=== PATIENT | female | born 1935 | race Two or more races ===

== ENCOUNTER 2016-08-26 14:31 | Emergency (ER) | payer OTHER ==
[2016-08-26 15:09] VITALS: TEMP 97.7; O2SAT 96
[2016-08-26 16:36] LABS: % IMMATURE GRANULYOCYTES 0.2 % (0.0-1.1); ABSOLUTE IMMATURE GRANULOCYTES 0.01 10^3/uL (0.00-0.10); ADD DIFF? NO; ADD MORPH? NO; ADD SCAN? NO; ATYPICAL LYMPHOCYTE FLAG 0 (0-99); FRAGMENT RBC FLAG 0 (0-99); HEMATOCRIT 46.4 % (38.0-47.0); HEMOGLOBIN 15.4 g/dL (12.6-16.3); LEFT SHIFT FLG 0 (0-99); LIPEMIA HEMOLYSIS FLAG 80 (0-99); MEAN CELL HEMOGLOBIN 30.7 pg (27.9-34.1); MEAN CELL HEMOGLOBIN CONCENTR. 33.2 g/dL (32.4-36.7); MEAN CELL VOLUME 92.4 fL (81.5-99.8); MEAN PLATELET VOLUME 10.7 fL (8.7-11.7); PLATELET CLUMPS FLAG 10 (0-99); PLATELET COUNT 219 10^3/uL (150-400); RED BLOOD CELL COUNT 5.02 10^6/uL (4.18-5.33); RED CELL DISTRIBUTION WIDTH 13.5 % (11.5-15.2)
[2016-08-26 16:49] LABS: ALANINE AMINOTRANSFERASE 23 IU/L (9-52); ALBUMIN 3.9 g/dL (3.5-5.0); ALKALINE PHOSPHATASE 58 IU/L (38-126); ANION GAP 10 mEq/L (8-16); ASPARTATE AMINOTRANSFERASE 33 IU/L (14-46); BILIRUBIN,TOTAL 0.7 mg/dL (0.1-1.4); CALCIUM 9.8 mg/dL (8.5-10.4); CARBON DIOXIDE 28 mEq/l (22-31); CHLORIDE 104 mEq/L (97-110); CREATININE 0.9 mg/dL (0.6-1.0); GLOMERULAR FILTRATION RATE > 60; GLUCOSE 92 mg/dL (70-100); MAGNESIUM 1.9 mg/dL (1.6-2.3); POTASSIUM 4.4 mEq/L (3.5-5.2); SODIUM 142 mEq/L (134-144); TOTAL PROTEIN 6.9 g/dL (6.3-8.2)
[2016-08-26 17:04] LABS: TROPONIN I < 0.012 ng/mL (0-0.034)
[2016-08-26] MEDS ORDERED: ONDANSETRON 4 MG/2 ML VIAL IVP ONE (17:08)
[2016-08-26] MEDS ORDERED: NS 1,000 ML IV ONE (17:08)
--- NOTE | 2016-08-26 17:18 | CT ---
CT Head (Without Contrast) 4:29 p.m. Indication: Hit head 5 days ago. Continued headache and fatigue.. Comparison: None Technique: Standard noncontrast head CT protocol utilizing 5-mm thick collimated slices and field of view of 23 cm. Dose reduction techniques were utilized. Findings: No subdural hematoma. No intracranial hemorrhage, mass lesion, swelling, or extraaxial flui d collection. The ventricles are normal caliber and midline. Minimal cerebral atrophy and minimal low -attenuation periventricular white matter disease in the frontal lobes. The mandujano and white matter has normal attenuation. No evidence of ischemia. No acute fracture. Paranasal sinuses are clear, except for mild mucosal thickening in the left ethmoid air cells. Impression: 1. No subdural hematoma or mass effect. 2. No acute skull fracture. Findings discussed with Emergency Department physician, Argentina Warner NP at 4:40 p.m., on August 26, 2016.
--- NOTE | 2016-08-26 17:23 | UCPHY ---
H & P Patient Type: New Chief Complaint Nursing Narrative: head hurts, drowsiness, diziness, for 5 days since hitting head on counter Time Seen by Provider: 08/26/16 15:31 HPI/ROS: 81-year-old female presents complaining of hitting her head on the kitchen counter approximately 5 days ago and since that time she feels that she has had headaches then generally felt sleepy your than normal and just not herself. No chest pain, no shortness of breath, no nausea no vomiting. No weakness in her arms or legs no difficulty with speech, no difficulty with gait Review of systems General no fever no chills no weakness, positive fatigue HEENT no eye pain no eye discharge. No eye redness, no sore throat Respiratory no cough, no shortness of breath Cardiac no chest pain, no peripheral edema GI no abdominal pain, no diarrhea, no constipation, no nausea, no vomiting no flank pain, no hematuria, no dysuria Musculoskeletal no myalgias, no joint pain Heme no easy bruising, no easy bleeding Endo no polyuria, no polydipsia Skin no rashes, no pruritus Neuro no syncope, no dizziness, positive headaches Psych is no suicidal ideation, no homicidal ideation Source: Patient - Medical/Surgical History Hx Asthma: No Hx Chronic Respiratory Disease: No Hx Diabetes: No Hx Cardiac Disease: Yes Hx Renal Disease: No Hx Cirrhosis: No Hx Alcoholism: No Hx HIV/AIDS: No Hx Splenectomy or Spleen Trauma: No Other PMH: Hypertension, knee surgery, cardiac history - Family History Significant Family History: No pertinent family hx - Social History Smoking Status: Never smoked Alcohol Use: None Drug Use: None - Physical Exam Exam: 81-year-old female appears younger than her stated age alert oriented nontoxic appearance afebrile HEENT atraumatic normocephalic, extraocular muscles intact, anicteric Oropharynx negative for erythema negative exudate, tolerating her own secretions Neck supple no meningismus Lungs clear to auscultation bilaterally Heart regular rate and rhythm without murmur rub or gallop Abdomen nondistended normoactive bowel sounds soft nontender Back no CVA tenderness, no step-offs, no spinal tenderness Extremities no cyanosis clubbing or edema Neuro alert and oriented, no focal deficits Constitutional: Initial Vital Signs Temperature (C) 36.5 C 08/26/16 15:01 Heart Rate 74 08/26/16 15:01 Respiratory Rate 20 08/26/16 15:01 Blood Pressure 187/114 H 08/26/16 15:01 O2 Sat (%) 96 08/26/16 15:01 O2 Delivery Mode Room Air Allergies/Adverse Reactions: No Known Allergies Allergy (Unverified 08/26/16 15:03) Home Medications: Medication Instructions Recorded Crestor 08/26/16 Fosinopril Sodium 08/26/16 Metoprolol Tartrate 08/26/16 Medical Decision Making - Diagnostics EKG Interpretation: EKG normal sinus rhythm no ischemia Imaging: CT head negative ED Course/Re-evaluation: Patient seen and evaluated for head injury 5 days ago with ongoing symptoms CT head negative EKG normal sinus rhythm Labs all within normal limits Patient refusing IV fluids or ondansetron Impression Concussion Plan Follow-up PCP - Data Points Laboratory Results: Laboratory Results 08/26/16 16:21 08/26/16 16:21 08/26/16 16:21 WBC 5.31 10^3/uL (3.80-9.50) RBC 5.02 10^6/uL (4.18-5.33) Hgb 15.4 g/dL (12.6-16.3) Hct 46.4 % (38.0-47.0) MCV 92.4 fL (81.5-99.8) MCH 30.7 pg (27.9-34.1) MCHC 33.2 g/dL (32.4-36.7) RDW 13.5 % (11.5-15.2) Plt Count 219 10^3/uL (150-400) MPV 10.7 fL (8.7-11.7) Neut % (Auto) 54.2 % (39.3-74.2) Lymph % (Auto) 37.1 % (15.0-45.0) Bracken % (Auto) 5.8 % (4.5-13.0) Eos % (Auto) 1.9 % (0.6-7.6) Baso % (Auto) 0.8 % (0.3-1.7) Nucleat RBC Rel Count 0.0 % (0.0-0.2) Absolute Neuts (auto) 2.88 10^3/uL (1.70-6.50) Absolute Lymphs (auto) 1.97 10^3/uL (1.00-3.00) Absolute Monos (auto) 0.31 10^3/uL (0.30-0.80) Absolute Eos (auto) 0.10 10^3/uL (0.03-0.40) Absolute Basos (auto) 0.04 10^3/uL (0.02-0.10) Absolute Nucleated RBC 0.00 10^3/uL (0-0.01) Immature Gran % 0.2 % (0.0-1.1) Immature Gran # 0.01 10^3/uL (0.00-0.10) Sodium 142 mEq/L (134-144) Potassium 4.4 mEq/L (3.5-5.2) Chloride 104 mEq/L (97-110) Carbon Dioxide 28 mEq/l (22-31) Anion Gap 10 mEq/L (8-16) BUN 20 mg/dL (7-23) Creatinine 0.9 mg/dL (0.6-1.0) Estimated GFR > 60 Glucose 92 mg/dL (70-100) Calcium 9.8 mg/dL (8.5-10.4) Magnesium 1.9 mg/dL (1.6-2.3) Total Bilirubin 0.7 mg/dL (0.1-1.4) AST 33 IU/L (14-46) ALT 23 IU/L (9-52) Alkaline Phosphatase 58 IU/L (38-126) Troponin I < 0.012 ng/mL (0-0.034) Total Protein 6.9 g/dL (6.3-8.2) Albumin 3.9 g/dL (3.5-5.0) Lipase 270.0 IU/L (23-300) TSH 2.190 uIU/mL (0.465-4.680) Medications Given: Discontinued Medications Sodium Chloride (Ns) 1,000 mls @ 0 mls/hr IV ONCE ONE PRN Reason: Wide Open Stop: 08/26/16 17:09 Last Admin: 08/26/16 17:18 Dose: Not Given Ondansetron HCl (Zofran) 4 mg IVP EDNOW ONE Stop: 08/26/16 17:09 Last Admin: 08/26/16 17:18 Dose: Not Given Departure - Departure Disposition: Home, Routine, Self-Care Clinical Impression: Concussion, Hypertension Condition: Good Instructions: Concussion (ED) Referrals: Tera Cevallos MD [Primary Care Provider] - As per Instructions - PQRS PQRS Measurement: 134: Depression screening and followup, [place]-PHQ2 (12 years and older) Over the last 2 weeks, how often have you been bothered by any of the following problems? 1. Feeling down, depressed, or hopeless? 2. Little interest or pleasure in doing things? Patient answered no to both 1 and 2 130: Documentation of medications. Reviewed all patient medications, doses, route and frequency. 226: Do you smoke? No. 47: 65 and older: Advanced care planning. Patient designates surrogate decision maker as spouse.. [Patient has advanced directive.] 51: 18 years old and older with diagnosis of COPD, spirometry performance. [Patient has no history of COPD 52: 18 years old and older with COPD and symptoms of COPD or FEV1<60% predicted prescribed a B Agonist. [Spirometry not performed; equipment not available.]
[2016-08-26 17:41] VITALS: BP 174/90; PULSE 78; RESP 18
== END 2016-08-26 17:40 | disposition home or self-care (01) ==
LOC: CED 14:31
DX: S06.0X0A Concussion without loss of consciousness, initial encounter (principal); I10 Essential (primary) hypertension; Y92.010 Kitchen of single-family (private) house as the place of occurrence of the external cause; W22.09XA Striking against other stationary object, initial encounter; Y99.8 Other external cause status
CPT/HCPCS: 70450; G0463; J2405; 80053-PO; 83690-PO; 83735-PO; 84443-PO; 84484-PO; 85025-PO; 93010-PO; 99205-PO

== ENCOUNTER 2016-09-27 14:37 | Emergency (ER) | payer OTHER ==
[2016-09-27 14:51] VITALS: RESP 18; TEMP 98.2
--- NOTE | 2016-09-27 16:24 | EDPHY ---
H & P Stated Complaint: Not feeling well & labile BP since hitting head early Aug ( see [facility] [place]) Time Seen by Provider: 09/27/16 15:15 HPI/ROS: Chief complaint: Lightheadedness, blood pressure control HPI: 81-year-old female who is been having difficulty managing her blood pressure for the last several weeks. She states she hit her head about 5 weeks ago and had a CT scan at [facility] which was normal at that time. Since that time she has noticed altercations in her blood pressure. She was noted that her blood pressure of 189/110 4 weeks ago. Blood pressure medications were increased. Two weeks later that her blood pressure was unchanged. A week ago she changed her medications to lisinopril and hydrochlorothiazide. Patient continued to take metoprolol 50 mg at night. The for the past week she has been waking up very weak and lightheaded in the morning. As the day goes on she feels better by the evening time she feels normal again. They have noted that her blood pressures been in the 80s in the morning and improves as the day goes on. Was last seen by the primary care physician on Wednesday. This morning woke up feeling lightheaded again. Blood pressure is 80/2 systolic on their blood pressure monitor at home. They called Dr. matt bruno for evaluation. Patient now states she feels improved. Blood pressure is normal here. Denies any headache. No nausea or vomiting. No confusion. No fevers or chills. No new urinary symptoms. No other concerns. ROS: 10 point Review of Systems is negative except as noted in the HPI. Past medical history: Hypertension Medications: Lisinopril 20 mg in the morning hydrochlorothiazide 12.5 mg in the morning Metoprolol 50 mg at bedtime Crestor 5 mg daily Allergies: No known drug allergies Physical exam: Gen: Awake, Alert, No Distress HEENT: Nose: no rhinorrhea Eyes: PERRLA, EOMI Mouth: Moist mucosa Neck: Supple, no JVD Chest: nontender, lungs clear to auscultation Heart: S1, S2 normal, no murmur Abd: Soft, non-tender, no guarding Back: no CVA tenderness, no midline tenderness Ext: no edema, non-tender Skin: no rash Neuro: CN II-XII intact, Sensation grossly intact, Strength 5/5 in bilateral upper and lower extremities - Personal History Current Tetanus Diphtheria and Acellular Pertussis (TDAP): Unsure - Medical/Surgical History Hx Asthma: No Hx Chronic Respiratory Disease: No Hx Diabetes: No Hx Cardiac Disease: Yes Hx Renal Disease: No Hx Cirrhosis: No Hx Alcoholism: No Hx HIV/AIDS: No Hx Splenectomy or Spleen Trauma: No Other PMH: Hypertension, knee surgery, cardiac history - Social History Smoking Status: Never smoked Constitutional: Initial Vital Signs Temperature (C) 36.8 C 09/27/16 14:45 Heart Rate 61 09/27/16 14:45 Respiratory Rate 18 09/27/16 14:45 Blood Pressure 113/86 H 09/27/16 14:45 O2 Sat (%) 95 09/27/16 14:45 O2 Delivery Mode Room Air Allergies/Adverse Reactions: No Known Allergies Allergy (Verified 09/27/16 14:47) Home Medications: Medication Instructions Recorded Lisinopril/Hctz 20/12.5MG 0.5 ea PO 09/27/16 [Zestoretic/Prinzide 20/12.5MG (*)] Metoprolol Succinate 50 mg PO 09/27/16 Rosuvastatin Calcium [Crestor 5mg] 5 mg PO 09/27/16 Sertraline HCl [Zoloft 25mg (*)] 25 mg PO DAILY 09/27/16 Medical Decision Making ED Course/Re-evaluation: 9-year-old female presenting with complaints of feeling lightheaded unwell with low blood pressure in the morning which gets better otherwise the day goes on. I suspect this is likely secondary to her nighttime metoprolol which she is getting residual beta-blockade in the morning which is then wearing off his medication wears off. I do not feel that her symptoms are related to the head injury from 5 weeks ago. Her primary care doctor has been changing medications adding lisinopril and hydrochlorothiazide. She is not orthostatic here. She is up and ambulating without any difficulty. Recent laboratory evaluations were unremarkable. I have counseled them at length with my suspicions as to the cause of this. I am hesitant to make any changes at this time. An appoint with her doctor on Wednesday. They will continue to monitor her blood pressure did over the course of the day to see if she continues to have this trend. I suggested that perhaps he might need to change metoprolol to decrease dosing may be make it twice a day so that she tolerates this better. Departure - Departure Disposition: Home, Routine, Self-Care Clinical Impression: Blood pressure instability Condition: Good Instructions: Hypertension (ED) Additional Instructions: Please discussed with your primary care doctor your appointment about changing her metoprolol dose or timing to avoid low blood pressures in the morning. Referrals: Tera Cevallos MD [Primary Care Provider] - As per Instructions
[2016-09-27 16:45] VITALS: BP 152/85; PULSE 69; O2SAT 96
== END 2016-09-27 16:42 | disposition home or self-care (01) ==
DX: I10 Essential (primary) hypertension (principal)

== ENCOUNTER 2016-11-13 14:43 | Emergency (ER) | payer OTHER ==
[2016-11-13 15:05] VITALS: PULSE 54; TEMP 97.9; O2SAT 96
--- NOTE | 2016-11-13 15:12 | EDPHY ---
H & P Time Seen by Provider: 11/13/16 15:00 HPI/ROS: CHIEF COMPLAINT: High blood pressure HISTORY OF PRESENT ILLNESS: Patient is an 81-year-old female comes to the Urgent Care complaining of high blood pressure. She is asymptomatic. She was here 2 months ago after she hit her head and was found to have high blood pressure. At that time she was taking metoprolol. She followed up with her regular doctor who started her on lisinopril/hydrochlorothiazide. After beginning this medication however her blood pressure was too low and she was seen here again about a month ago. Her systolic was in the 80s. Her primary Dr. Siri Cevallos then discontinued her lisinopril/hydrochlorothiazide 2 weeks ago. She now has had high blood pressure for the last 2 weeks. Today it is 219 /105. She denies chest pain or shortness of breath or headache. No lightheadedness. No vision changes. REVIEW OF SYSTEMS: Constitutional: denies: chills, fever, recent illness, recent injury EENTM: denies: blurred vision, double vision, nose congestion Respiratory: denies: cough, shortness of breath Cardiac: denies: chest pain, irregular heart rate, lightheadedness, palpitations Gastrointestinal/Abdominal: denies: abdominal pain, diarrhea, nausea, vomiting, blood streaked stools Genitourinary: denies: dysuria, frequency, hematuria, pain Musculoskeletal: denies: joint pain, muscle pain Skin: denies: lesions, rash, jaundice, bruising Neurological: denies: headache, numbness, paresthesia, tingling, dizziness, weakness Hematologic/Lymphatic: denies: blood clots, easy bleeding, easy bruising Immunologic/allergic: denies: HIV/AIDS, transplant EXAM: GENERAL: Well-appearing, well-nourished and in no acute distress. HEAD: Atraumatic, normocephalic. EYES: Pupils equal round and reactive to light, extraocular movements intact, sclera anicteric, conjunctiva are normal. ENT: TMs normal, nares patent, oropharynx clear without exudates. Moist mucous membranes. NECK: Normal range of motion, supple without lymphadenopathy or JVD. LUNGS: Breath sounds clear to auscultation bilaterally and equal. No wheezes rales or rhonchi. HEART: Regular rate and rhythm without murmurs, rubs or gallops. ABDOMEN: Soft, nontender, normoactive bowel sounds. No guarding, no rebound. No masses appreciated. BACK: No CVA tenderness, no spinal tenderness, step-offs or deformities EXTREMITIES: Normal range of motion, no pitting or edema. No clubbing or cyanosis. NEUROLOGICAL: Cranial nerves II through XII grossly intact. Normal speech, normal gait. 5/5 strength, normal movement in all extremities, normal sensation PSYCH: Normal mood, normal affect. SKIN: Warm, dry, normal turgor, no visible rashes or lesions. Source: Patient Exam Limitations: No limitations - Medical/Surgical History Hx Asthma: No Hx Chronic Respiratory Disease: No Hx Diabetes: No Hx Cardiac Disease: Yes Hx Renal Disease: No Hx Cirrhosis: No Hx Alcoholism: No Hx HIV/AIDS: No Hx Splenectomy or Spleen Trauma: No Other PMH: Hypertension, knee surgery, cardiac history - Family History Significant Family History: No pertinent family hx - Social History Smoking Status: Never smoked Alcohol Use: Sober Drug Use: None Constitutional: Initial Vital Signs Temperature (C) 36.6 C 11/13/16 15:03 Heart Rate 54 L 11/13/16 15:03 Respiratory Rate 18 11/13/16 15:03 Blood Pressure 218/118 H 11/13/16 15:03 O2 Sat (%) 96 11/13/16 15:03 O2 Delivery Mode Room Air Allergies/Adverse Reactions: No Known Allergies Allergy (Verified 09/27/16 14:47) Home Medications: Medication Instructions Recorded Lisinopril/Hctz 20/12.5MG 0.5 ea PO 09/27/16 [Zestoretic/Prinzide 20/12.5MG (*)] Metoprolol Succinate 50 mg PO 09/27/16 Rosuvastatin Calcium [Crestor 5mg] 5 mg PO 09/27/16 Sertraline HCl [Zoloft 25mg (*)] 25 mg PO DAILY 09/27/16 clonIDINE [Catapres (*)] 0.1 mg PO BID PRN #7 tab 11/13/16 Medical Decision Making - Diagnostics EKG Interpretation: An EKG obtained and was read and documented in trace view. Please see trace view for full reading and report. Sinus rhythm, no acute ischemic changes ED Course/Re-evaluation: 3:50 p.m. The patient's blood pressure is down to 150/100. She remains asymptomatic. I will give her a prescription for clonidine to take p.r.n.. I advised her to take if her systolic blood pressure get above 180 but otherwise to follow up with her Dr. Cevallos within the next few days. She and her understand agree with this plan. Differential Diagnosis: Partial list of the Differential diagnosis considered include but were not limited to; hypertension, medication withdrawal, hypertensive emergency, hypertensive urgency and although unlikely based on the history and physical exam, I also considered acute coronary disease, PE, pneumothorax. I discussed these differential diagnoses and the plan with the patient as well as the usual and expected course. The patient understands that the diagnosis is provisional and that in medicine we are not always correct and that further workup is often warranted. Usual and customary warnings were given. All of the patient's questions were answered. The patient was instructed to return to the emergency department should the symptoms at all worsen or return, otherwise to followup with the physician as we discussed. - Data Points Medications Given: Discontinued Medications Clonidine (Catapres) 0.1 mg PO EDNOW ONE Stop: 11/13/16 15:10 Last Admin: 11/13/16 15:28 Dose: 0.1 mg Departure - Departure Disposition: Home, Routine, Self-Care Clinical Impression: Hypertension Qualifiers: Hypertension type: essential hypertension Qualified Code(s): I10 - Essential ( primary) hypertension Condition: Fair Instructions: Hypertension (ED) Additional Instructions: Take 1 clonidine tablet if your blood pressure is over 180 systolic. Do not take more than 2 in 1 day. Follow-up with Dr. Cevallos so she can readjust your medications and then discontinue the clonidine. Referrals: Tera Cevallos MD [Primary Care Provider] - 2-3 days, call for appt. Prescriptions: clonIDINE [Catapres (*)] 0.1 mg PO BID PRN #7 tab PRN Reason: Hypertension
--- NOTE | 2016-11-13 15:18 | CPEKG ---
Heart Rate: 51 RR Interval: 1176 P-R Interval: 176 QRSD Interval: 104 QT Interval: 488 QTC Interval: 450 P [place]: 77 QRS [place]: -57 T Wave [place]: 54 EKG Severity - ABNORMAL ECG - EKG Impression: SINUS RHYTHM EKG Impression: PROBABLE LEFT ATRIAL ABNORMALITY EKG Impression: LAD, CONSIDER LEFT ANTERIOR FASCICULAR BLOCK EKG Impression: LEFT VENTRICULAR HYPERTROPHY EKG Impression: LATERAL INFARCT, OLD Electronically Signed By: Timoteo Garcia 13-Nov-2016 15:28:43
[2016-11-13 16:01] VITALS: BP 146/103; RESP 16
== END 2016-11-13 16:06 | disposition home or self-care (01) ==
LOC: CED 14:43
DX: I10 Essential (primary) hypertension (principal)

== ENCOUNTER → 2016-12-18 | Outpatient (CLI) | payer OTHER | LOC: CIMAGING 12:23 | DX: Z12.31 Encounter for screening mammogram for malignant neoplasm of breast (principal) | CPT/HCPCS: G0202 ==

== ENCOUNTER → 2017-01-05 | Outpatient (CLI) | payer OTHER | LOC: CIMAGING 13:06 | PROVIDERS: ATTEND Internal Medicine | DX: Z12.39 Encounter for other screening for malignant neoplasm of breast (principal); R92.8 Other abnormal and inconclusive findings on diagnostic imaging of breast | CPT/HCPCS: G0206 ==

== ENCOUNTER → 2017-11-29 | Outpatient (CLI) | payer OTHER | LOC: CIMAGING 14:43 | PROVIDERS: ATTEND Internal Medicine | DX: M17.12 Unilateral primary osteoarthritis, left knee (principal); M76.892 Other specified enthesopathies of left lower limb, excluding foot | CPT/HCPCS: 73562-PO ==

== ENCOUNTER → 2018-01-03 | Outpatient (CLI) | payer OTHER | LOC: CIMAGING 13:54 | PROVIDERS: ATTEND Internal Medicine | DX: Z12.31 Encounter for screening mammogram for malignant neoplasm of breast (principal) ==

== ENCOUNTER 2018-07-22 13:32 | Inpatient (IN) | payer OTHER ==
--- NOTE | 2018-07-22 13:44 | EDPHY ---
H & P Time Seen by Provider: 07/22/18 13:32 - Medical/Surgical History Hx Asthma: No Hx Chronic Respiratory Disease: No Hx Diabetes: No Hx Cardiac Disease: Yes Hx Renal Disease: No Hx Cirrhosis: No Hx Alcoholism: No Hx HIV/AIDS: No Hx Splenectomy or Spleen Trauma: No Other PMH: Hypertension, knee surgery, cardiac history - Social History Smoking Status: Never smoked Constitutional: Initial Vital Signs Temperature (C) 36.5 C 07/22/18 13:52 Heart Rate 60 07/22/18 13:52 Respiratory Rate 19 07/22/18 13:52 Blood Pressure 223/112 H 07/22/18 13:52 O2 Sat (%) 97 07/22/18 13:52 O2 Delivery Mode Nasal Cannula O2 (L/minute) 4 Allergies/Adverse Reactions: No Known Allergies Allergy (Verified 09/27/16 14:47) Home Medications: Medication Instructions Recorded Lisinopril/Hctz 20/12.5MG 0.5 ea PO 09/27/16 [Zestoretic/Prinzide 20/12.5MG (*)] Metoprolol Succinate 50 mg PO 09/27/16 Rosuvastatin Calcium [Crestor 5mg] 5 mg PO 09/27/16 Sertraline HCl [Zoloft 25mg (*)] 25 mg PO DAILY 09/27/16 clonIDINE [Catapres (*)] 0.1 mg PO BID PRN #7 tab 11/13/16 Medical Decision Making - Diagnostics Imaging Results: Imaging Impressions Head CT 07/22/18 13:35 Impression: 1. Decreased mandujano-white differentiation in the left frontoparietal lobe is suspicious for an acute infarct. 2. Age-appropriate generalized cerebral volume loss with sequela of chronic microvascular ischemic disease. Findings and recommendations discussed with Tristan Lay MD at 1350 hour, 07/22/2018. Head CTA 07/22/18 13:35 Impression: 1. Mildly decreased enhancement of the tiny arteries supplying the hypodense left frontoparietal area seen on unenhanced CT. No large vessel occlusion. 2. Ectasia of the ascending aorta measuring 4.2 cm. 3. Right upper lobe nodule measuring 3.4 mm, almost certainly benign. Stenoses are calculated using [place] Symptomatic Carotid Endarterectomy Trial (NASCET) criteria. Findings and recommendations discussed with Tristan Lay MD at 1420 hour, 07/22/2018. Neck CTA 07/22/18 13:36 Impression: 1. Mildly decreased enhancement of the tiny arteries supplying the hypodense left frontoparietal area seen on unenhanced CT. No large vessel occlusion. 2. Ectasia of the ascending aorta measuring 4.2 cm. 3. Right upper lobe nodule measuring 3.4 mm, almost certainly benign. Stenoses are calculated using [place] Symptomatic Carotid Endarterectomy Trial (NASCET) criteria. Findings and recommendations discussed with Tristan Lay MD at 1420 hour, 07/22/2018. Imaging: Discussed imaging studies w/ director call center sales Radiologist, I viewed and interpreted images myself ED Course/Re-evaluation: CHIEF COMPLAINT: Stroke Alert, aphasia HISTORY OF PRESENT ILLNESS: The patient is a primarily Hungarian-speaking 83 y/ o female with a history of hypertension who presents emergently via EMS as a Stroke Alert with aphasia of uncertain onset. Per EMS, her on scene said she was acting normally around 08:00, about 5.5 hours ago, and went through her normal morning routines. There was a decline throughout the day and she was completely aphasic on scene for EMS when family members were on site to translate. They determined she knew what she wanted to say, but was unable to produce any language. No obvious weakness noted and no report by family of recent illness or trauma. Her prehospital BGL was 91 and prehospital EKG showed sinus mechanism. No anticoagulants listed in medical records here. REVIEW OF SYSTEMS: A comprehensive 10 system review of systems is otherwise negative aside from elements mentioned in the history of present illness and medical decision making. PHYSICAL EXAM: HR, BP, O2 Sat, RR. Temp noted General Appearance: Alert, well hydrated, aphasic, able to follow some commands. Head: Atraumatic without scalp tenderness or obvious injury Eyes: Pupils equal, round, reactive to light and accommodation, EOMI, no trauma , no injection. Nose: Atraumatic, no rhinorrhea, clear. Throat:Mucus membranes moist. Neck: Supple, non-tender, no lymphadenopathy. Respiratory: No retractions, no distress, no wheezes, and no accessory muscle use. Lungs are clear to auscultation bilaterally. Cardiovascular: Regular rate and rhythm, no murmurs, rubs, or gallops. Good capillary refill all extremities. Gastrointestinal: Abdomen is soft, non-tender, non-distended, no masses, no rebound, no guarding, no peritoneal signs. Musculoskeletal: Normal active ROM of all extremities, atraumatic. Neurological: Alert, aphasic, able to follow some basic commands. Able to move all extremities. No facial droop. Skin: No rashes, good turgor, no nodules on palpation. PAST MEDICAL HISTORY: Hypertension; medications include: Crestor, metoprolol, Zoloft PAST SURGICAL HISTORY: Unknown. SOCIAL HISTORY: Primarily Hungarian-speaking. . Lives in [place]. DIAGNOSTICS/PROCEDURES/CRITICAL CARE TIME: Head CT: Acute left frontal infarct Head CTA: No large vessel occlusion Neck CTA: No large vessel occlusion The 12 lead EKG was interpreted by myself. Sinus mechanism. LAFB. See hard copy and/or "tracemaster" electronic copy for interpretation. Critical care time spent by me, Dr. Lay, exclusively with this patient was 35 minutes, exclusive of PA time and exclusive of procedures. The organ system at risk was brain. Time spent in serial assessments of the patient, discussion with patient's family, consideration of TPA and other interventions, neurology consultation, and review of CT scans. DIFFERENTIAL DIAGNOSIS: The differential diagnosis for the patient's neurologic deficits included but was not limited to peripheral causes, central causes including CVA, TIA, electrolyte abnormalities and dehydration, cardiogenic causes, atypical causes like migraine syndrome. MEDICAL DECISION MAKIN: Met EMS upon arrival and took report. This is a Hungarian-speaking 83 y/ o female with a history of hypertension who presents with new-onset expressive aphasia sometime in the last 5.5 hours. She may have been last been normal around 08:00, but this information is 3rd-hand and unverifiable. She is able to follow some basic commands in Faroese here, but continues to be aphasic. No extremity weakness or facial droop. Prehospital EKG and BGL were normal. Plan for urgent stroke work up including neuroimaging, labs, neurology consultation. 1334: Patient sent to CT. 1350: CT shows acute stroke. She is not a TPA candidate. Reassessed patient and discussed findings with her and her son who is at bedside. He confirms the medications she is on and denies aspirin or anticoagulant use. Plan for admission. 1355: BP 223/112 - 20mg IV labetalol bolus ordered. Will titrate to get diastolic under 100 and systolic closer to 160. 1359: Consulted with Dr. Serra, neurology. His service will consult. 1405: Spoke with hospitalist service. Dr. Madison accepts admission. - Data Points Laboratory Results: Laboratory Results 07/22/18 13:30 07/22/18 13:30 07/22/18 07/22/18 07/22/18 13:44 13:30 13:30 WBC RBC Hgb Hct MCV MCH MCHC RDW Plt Count MPV Neut % (Auto) Lymph % (Auto) [place] % (Auto) Eos % (Auto) Baso % (Auto) Nucleat RBC Rel Count Absolute Neuts (auto) Absolute Lymphs (auto) Absolute Monos (auto) Absolute Eos (auto) Absolute Basos (auto) Absolute Nucleated RBC Immature Gran % Immature Gran # PT 12.9 SEC SEC (12.0-15.0) INR 0.95 (0.83-1.16) APTT 24.1 SEC SEC (23.0-38.0) Sodium 140 mEq/L mEq/L (135-145) Potassium 4.2 mEq/L mEq/L (3.5-5.2) Chloride 105 mEq/L mEq/L (97-110) Carbon Dioxide 28 mEq/l mEq/l (22-31) Anion Gap 7 mEq/L mEq/L (6-14) BUN 28 mg/dL H mg/dL (7-23) Creatinine 1.0 mg/dL mg/dL (0.6-1.0) Estimated GFR 53 Glucose 88 mg/dL mg/dL (70-100) Calcium 9.8 mg/dL mg/dL (8.5-10.4) POC Troponin I 0.01 ng/mL ng/mL (0.00-0.08) 07/22/18 13:30 WBC 5.01 10^3/uL 10^3/uL (3.80-9.50) RBC 4.89 10^6/uL 10^6/uL (4.18-5.33) Hgb 15.1 g/dL g/dL (12.6-16.3) Hct 45.8 % % (38.0-47.0) MCV 93.7 fL fL (81.5-99.8) MCH 30.9 pg pg (27.9-34.1) MCHC 33.0 g/dL g/dL (32.4-36.7) RDW 13.8 % % (11.5-15.2) Plt Count 212 10^3/uL 10^3/uL (150-400) MPV 10.8 fL fL (8.7-11.7) Neut % (Auto) 41.7 % % (39.3-74.2) Lymph % (Auto) 48.7 % H % (15.0-45.0) [place] % (Auto) 6.6 % % (4.5-13.0) Eos % (Auto) 2.0 % % (0.6-7.6) Baso % (Auto) 0.8 % % (0.3-1.7) Nucleat RBC Rel Count 0.0 % % (0.0-0.2) Absolute Neuts (auto) 2.09 10^3/uL 10^3/uL (1.70-6.50) Absolute Lymphs (auto) 2.44 10^3/uL 10^3/uL (1.00-3.00) Absolute Monos (auto) 0.33 10^3/uL 10^3/uL (0.30-0.80) Absolute Eos (auto) 0.10 10^3/uL 10^3/uL (0.03-0.40) Absolute Basos (auto) 0.04 10^3/uL 10^3/uL (0.02-0.10) Absolute Nucleated RBC 0.00 10^3/uL 10^3/uL (0-0.01) Immature Gran % 0.2 % % (0.0-1.1) Immature Gran # 0.01 10^3/uL 10^3/uL (0.00-0.10) PT INR APTT Sodium Potassium Chloride Carbon Dioxide Anion Gap BUN Creatinine Estimated GFR Glucose Calcium POC Troponin I Medications Given: Discontinued Medications Labetalol HCl (Trandate Injection) 20 mg IVP EDNOW ONE Stop: 07/22/18 14:06 Last Admin: 07/22/18 14:08 Dose: 20 mg Point of Care Test Results: Chemistry 07/22/18 13:44 POC Troponin I 0.01 ng/mL ng/mL (0.00-0.08) Departure - Departure Disposition: [facility] Acute Clinical Impression: CVA (cerebral vascular accident) Qualifiers: CVA mechanism: other Qualified Code(s): I63.89 - Other cerebral infarction Condition: Fair Referrals: Patient,NotPresent [Primary Care Provider] - As per Instructions Report Scribed for: Tristan aLy Report Scribed by: Faiza Pimentel Date of Report: 07/22/18 Time of Report: 13:44
[2018-07-22 13:45] LABS: PLATELET COUNT 212 10^3/uL (150-400)
[2018-07-22 13:55] LABS: INR 0.95 (0.83-1.16); PROTIME(PATIENT) 12.9 SEC (12.0-15.0)
[2018-07-22] MEDS ORDERED: LABETALOL HCL 5 MG/ML 20 ML MDV ONE (13:58)
[2018-07-22] MEDS ORDERED: LABETALOL HCL 5 MG/ML 20 ML MDV IVP ONE ×3 (14:05→14:39)
[2018-07-22] MEDS ORDERED: ASPIRIN 325 MG TAB PO SCH (14:30)
--- NOTE | 2018-07-22 15:30 | PDGENHP ---
<Ellen Huang - Last Filed: 07/22/18 16:32> History and Physical - Chief Complaint Expressive asphagia - History of Present Illness 83 y/o female presents with expressive asphasia. She is primarily German- speaking, she can understand some amount of Lao. Her son was at bedside and was able to translate. Apparently, her who is 89 y/o reports her "normal" and doing her morning activities (around 8:00am) such as making and eating breakfast and then throughout the day, progressively worsened with expressive asphasia. The pt understands but cannot communicate. Denies chest pains, N/V, SOB, fevers, chills. Subjectively no extremity weakness or facial drooping. Head CT is suspicious for left frontoparietal lobe infarct, no hemorrhage. Head and neck CTA show mildly decreased enhancement of tiny arteries supplying the hypodense left frontoparietal see on the unenhanced CT. No large vessel occlusion. Past Medical/Surgical History 1. Hypertension 2. Anxiety 3. Aortic valve disease 4. Hyperlipidemia 5. Knee surgery Social 1. Lives in [place] with her 2. Denies tobacco or illicit drug use. Rarely drinks alcohol. History Information - Allergies/Home Medication List Allergies/Adverse Reactions: No Known Allergies Allergy (Verified 09/27/16 14:47) Home Medications: Rosuvastatin Calcium [Crestor 5mg] 5 mg PO DAILY 09/27/16 [Last Taken Unknown] Herbals/Supplements -Info Only 1 ea PO DAILY 07/22/18 [Last Taken Unknown] Metoprolol Succinate Xr [Toprol Xl 50 mg (*)] 50 mg PO DAILY 07/22/18 [Last Taken 07/22/18] Sertraline HCl [Zoloft 50mg (*)] 50 mg PO DAILY 07/22/18 [Last Taken 07/19/18] I have personally reviewed and updated: family history, medical history, social history, surgical history Past Medical History: See HPI list - Surgical History Additional surgical history: See HPI list - Family History Positive for: hypertension, stroke Additional family history: Father of CVA - Social History Smoking Status: Never smoked Alcohol Use: Rarely Drug Use: None Review of Systems Review of Systems: ROS: 10pt was reviewed & negative except for what was stated in HPI & below Constitutional: Reports: no symptoms EENMT: Reports: no symptoms Cardiac: Reports: no symptoms Respiratory: Reports: no symptoms Gastrointestinal: Reports: no symptoms Genitourinary: Reports: no symptoms Muscolosketal: Reports: no symptoms Skin: Reports: no symptoms Neurological: Reports: no symptoms Hematologic/Lymphatic: Reports: no symptoms Immunologic/Allergy: Reports: no symptoms Physical Exam Physical Exam: Lab data and imaging reviewed Temp Pulse Resp BP Pulse Ox 36.6 C 58 L 18 184/98 H 94 07/22/18 14:56 07/22/18 14:56 07/22/18 14:56 07/22/18 14:56 07/22/18 14:56 O2 (L/minute) 3 Constitutional: no apparent distress, appears nourished, not in pain Eyes: PERRL, anicteric sclera, EOMI Ears, Nose, Mouth, Throat: moist mucous membranes, hearing normal, ears appear normal, no oral mucosal ulcers Cardiovascular: regular rate and rhythym, no murmur, rub, or gallop, No edema Peripheral Pulses: 2+: dorsalis-pedis (R) (Radial 2+), dorsalis-pedis (L) ( Radial 2+) Respiratory: no respiratory distress, no rales or rhonchi, clear to auscultation Gastrointestinal: normoactive bowel sounds, soft, non-tender abdomen, no palpable masses Genitourinary: no bladder fullness, no bladder tenderness Skin: warm, normal color, no rashes or abrasions, no fluctuance, no induration, No mottled Musculoskeletal: full muscle strength, no muscle tenderness, normal joint ROM, no joint effusions Neurologic: sensation intact bilaterally, other (CN II- XII intact except for: mild right sided not symmetrical smile and ability to puff up her cheeks. Gross motor strength to BUE: 4/5, BLE 4/5. Follows commands appropriately.) Psychiatric: other (Expressive asphasia) Lymph, Heme, Immunologic: no cervical LAD, no supraclavicular LAD Lab Data & Imaging Review 07/22/18 13:30 07/22/18 13:30 WBC 5.01 10^3/uL (3.80-9.50) 07/22/18 13:30 RBC 4.89 10^6/uL (4.18-5.33) 07/22/18 13:30 Hgb 15.1 g/dL (12.6-16.3) 07/22/18 13:30 Hct 45.8 % (38.0-47.0) 07/22/18 13:30 MCV 93.7 fL (81.5-99.8) 07/22/18 13:30 MCH 30.9 pg (27.9-34.1) 07/22/18 13:30 MCHC 33.0 g/dL (32.4-36.7) 07/22/18 13:30 RDW 13.8 % (11.5-15.2) 07/22/18 13:30 Plt Count 212 10^3/uL (150-400) 07/22/18 13:30 MPV 10.8 fL (8.7-11.7) 07/22/18 13:30 Neut % (Auto) 41.7 % (39.3-74.2) 07/22/18 13:30 Lymph % (Auto) 48.7 % (15.0-45.0) H 07/22/18 13:30 Morrow % (Auto) 6.6 % (4.5-13.0) 07/22/18 13:30 Eos % (Auto) 2.0 % (0.6-7.6) 07/22/18 13:30 Baso % (Auto) 0.8 % (0.3-1.7) 07/22/18 13:30 Nucleat RBC Rel Count 0.0 % (0.0-0.2) 07/22/18 13:30 Absolute Neuts (auto) 2.09 10^3/uL (1.70-6.50) 07/22/18 13:30 Absolute Lymphs (auto) 2.44 10^3/uL (1.00-3.00) 07/22/18 13:30 Absolute Monos (auto) 0.33 10^3/uL (0.30-0.80) 07/22/18 13:30 Absolute Eos (auto) 0.10 10^3/uL (0.03-0.40) 07/22/18 13:30 Absolute Basos (auto) 0.04 10^3/uL (0.02-0.10) 07/22/18 13:30 Absolute Nucleated RBC 0.00 10^3/uL (0-0.01) 07/22/18 13:30 Immature Gran % 0.2 % (0.0-1.1) 07/22/18 13:30 Immature Gran # 0.01 10^3/uL (0.00-0.10) 07/22/18 13:30 PT 12.9 SEC (12.0-15.0) 07/22/18 13:30 INR 0.95 (0.83-1.16) 07/22/18 13:30 APTT 24.1 SEC (23.0-38.0) 07/22/18 13:30 Sodium 140 mEq/L (135-145) 07/22/18 13:30 Potassium 4.2 mEq/L (3.5-5.2) 07/22/18 13:30 Chloride 105 mEq/L (97-110) 07/22/18 13:30 Carbon Dioxide 28 mEq/l (22-31) 07/22/18 13:30 Anion Gap 7 mEq/L (6-14) 07/22/18 13:30 BUN 28 mg/dL (7-23) H 07/22/18 13:30 Creatinine 1.0 mg/dL (0.6-1.0) 07/22/18 13:30 Estimated GFR 53 07/22/18 13:30 Glucose 88 mg/dL (70-100) 07/22/18 13:30 Calcium 9.8 mg/dL (8.5-10.4) 07/22/18 13:30 POC Troponin I 0.01 ng/mL (0.00-0.08) 07/22/18 13:44 Assessment & Plan Plan: 83 y/o female presenting with non-hemorrhagic stroke with symptoms of expressive asphasia. She is not a tPA candidate d/t onset of symptoms being earlier this morning. She has multiple risk factors for enduring a stroke including hyperlipidemia and hypertension. Of note, she was seen October 2016 with high blood pressure (200s/100s). In September 2017, her PCP Dr. Stone evaluated the pt for 6 months of diminished strength. She is not anti- coagulated. 1. Acute CVA: Because this is not a hemorrhagic stroke, elevated blood pressure is acceptable however do not allow to get above 220/120. -Initiated ASA 81 mg -Brain MRI w/ and w/o contrast -Echo complete w/bubbler -Lipid panel tomorrow; she may continue rosuvastatin tomorrow morning. Son reports she ran out a few days ago and has not taken it recently. -A1c pending: blood glucose was 88 and POC upon arriving in the ED was 91 -Serial neuro checks -Cont tele monitoring -NIH stroke scale -Consult Neurology: Dr. Serra aware -RN swallow test first, then may eat regular diet. She denies difficulty swallowing. -OT/PT/GLUE SPECIALTY SUPERVISOR to evaluate 2. Hypertension -She took metoprolol this morning. May continue to give tomorrow morning. -As stated before, do not allow blood pressure go above 220/120. If so, please contact physician classification and treatment director for IVP blood pressure medication. 3. Hyperlipidemia -Lipid panel tomorrow -May continue rosuvastatin 4. Anxiety: it was noted in Dr. Stone note that the pt worries about her who has heart problems. 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 She reportedly ran out of sertraline a few days ago. She may continue to take this medication. Diet: NPO until passes swallow eval, then regular VTE ppx: ASA 81mg, SCDs. Will hold Lovenox subq for 24-48 hours to monitor any progression of stroke (should it evolve into a hemorrhagic stroke) Code: Full Dispo: Admit to inpatient <Jamie Madison - Last Filed: 07/22/18 22:48> History and Physical - History of Present Illness Review of Systems Review of Systems: Physical Exam Physical Exam: Temp Pulse Resp BP Pulse Ox 36.6 C 58 L 16 180/95 H 100 07/22/18 21:00 07/22/18 21:00 07/22/18 21:00 07/22/18 21:00 07/22/18 21:00 O2 (L/minute) 3 Lab Data & Imaging Review 07/22/18 13:30 07/22/18 13:30 WBC 5.01 10^3/uL (3.80-9.50) 07/22/18 13:30 RBC 4.89 10^6/uL (4.18-5.33) 07/22/18 13:30 Hgb 15.1 g/dL (12.6-16.3) 07/22/18 13:30 POC Hgb 16.0 gm/dL (12.6-16.3) 07/22/18 13:38 Hct 45.8 % (38.0-47.0) 07/22/18 13:30 POC Hct 47 % (38-47) 07/22/18 13:38 MCV 93.7 fL (81.5-99.8) 07/22/18 13:30 MCH 30.9 pg (27.9-34.1) 07/22/18 13:30 MCHC 33.0 g/dL (32.4-36.7) 07/22/18 13:30 RDW 13.8 % (11.5-15.2) 07/22/18 13:30 Plt Count 212 10^3/uL (150-400) 07/22/18 13:30 MPV 10.8 fL (8.7-11.7) 07/22/18 13:30 Neut % (Auto) 41.7 % (39.3-74.2) 07/22/18 13:30 Lymph % (Auto) 48.7 % (15.0-45.0) H 07/22/18 13:30 Morrow % (Auto) 6.6 % (4.5-13.0) 07/22/18 13:30 Eos % (Auto) 2.0 % (0.6-7.6) 07/22/18 13:30 Baso % (Auto) 0.8 % (0.3-1.7) 07/22/18 13:30 Nucleat RBC Rel Count 0.0 % (0.0-0.2) 07/22/18 13:30 Absolute Neuts (auto) 2.09 10^3/uL (1.70-6.50) 07/22/18 13:30 Absolute Lymphs (auto) 2.44 10^3/uL (1.00-3.00) 07/22/18 13:30 Absolute Monos (auto) 0.33 10^3/uL (0.30-0.80) 07/22/18 13:30 Absolute Eos (auto) 0.10 10^3/uL (0.03-0.40) 07/22/18 13:30 Absolute Basos (auto) 0.04 10^3/uL (0.02-0.10) 07/22/18 13:30 Absolute Nucleated RBC 0.00 10^3/uL (0-0.01) 07/22/18 13:30 Immature Gran % 0.2 % (0.0-1.1) 07/22/18 13:30 Immature Gran # 0.01 10^3/uL (0.00-0.10) 07/22/18 13:30 PT 12.9 SEC (12.0-15.0) 07/22/18 13:30 INR 0.95 (0.83-1.16) 07/22/18 13:30 APTT 24.1 SEC (23.0-38.0) 07/22/18 13:30 POC Sodium 143 mEq/L (135-145) 07/22/18 13:38 Sodium 140 mEq/L (135-145) 07/22/18 13:30 POC Potassium 3.8 mEq/L (3.3-5.0) 07/22/18 13:38 Potassium 4.2 mEq/L (3.5-5.2) 07/22/18 13:30 POC Chloride 104 mEq/L (97-110) 07/22/18 13:38 Chloride 105 mEq/L (97-110) 07/22/18 13:30 Carbon Dioxide 28 mEq/l (22-31) 07/22/18 13:30 Anion Gap 7 mEq/L (6-14) 07/22/18 13:30 POC BUN 26 mg/dL (7-23) H 07/22/18 13:38 BUN 28 mg/dL (7-23) H 07/22/18 13:30 Creatinine 1.0 mg/dL (0.6-1.0) 07/22/18 13:30 POC Creatinine 1.1 mg/dL (0.6-1.0) H 07/22/18 13:38 Estimated GFR 53 07/22/18 13:30 Glucose 88 mg/dL (70-100) 07/22/18 13:30 POC Glucose 89 mg/dL (70-100) 07/22/18 13:38 Hemoglobin A1c 6.1 % (4.0-6.0) H 07/22/18 13:30 Estim Average Glucose 128 mg/dL (68-126) H 07/22/18 13:30 Calcium 9.8 mg/dL (8.5-10.4) 07/22/18 13:30 POC Troponin I 0.01 ng/mL (0.00-0.08) 07/22/18 13:44 Assessment & Plan Assessment: CVA (cerebral vascular accident) (Acute) Plan: I have reviewed vitals, labs, and imaging and personally examined the patient. Case discussed with Leslie Huang NP and I agree with her plan as outlined above. Please see separate note for additional details.
--- NOTE | 2018-07-22 16:58 | ECHO ---
[email or web address] [address] Main: [phone] Fax: Transthoracic Echocardiogram Name: CELIO FRY MR#: [id number] Study Date: 07/22/2018 Study Time: 03:41 PM Date of : 1935 Age: 83 year(s) Height: 167.6 cm (66 in.) Weight: 56.25 kg (124 lb.) BSA: 1.63 m2 Gender: Female Examination: Echo with Agitated Saline Indication: acute stroke, eval with bubble Image Quality: Adequate Contrast: I.V. dose of agitated saline Requested by: Jamie Madison BP: 180 mmHg/92 mmHg Heart Rate: Rhythm: Indication: acute stroke, eval with bubble Procedure Staff Aquacultural Worker Supervisor: Linda Ramos [facility] Reading Physician: Campbell Velazco MD Requesting Provider: Conclusions: Normal global systolic LV function. EF is 64 %. An agitated saline study was performed and was negative for intracardiac shunting. Mild mitral annular calcification. Mild mitral valve regurgitation is present. Mild aortic valve regurgitation is present. Trivial to mild tricuspid valve regurgitation. Pulmonary artery pressure is not obtained due to inadequate TR jet. Measurements: Chambers Valvular Assessment AV/MV Valvular Assessment TV/PV Normal Normal Normal Name Value Range Name Value Range Name Value Range Ao Farzaneh (MM): 3.3 cm (2.2 cm-3.7 AV Vmax: 1.46 m/s (1 m/s-1.7 PV Vmax: 1.08 m/s (0.6 m/s-0.9 cm) m/s) m/s) IVSd (2D): 1.5 cm (0.6 cm-1.1 AV maxP mmHg ( - ) PV PGmax: 5 mmHg ( - ) cm) LVOT Vmax: 1.33 m/s (0.7 m/s-1.1 LVDd (2D): 3.6 cm (3.9 cm-5.3 m/s) cm) MV E Vmax: 0.52 m/s ( - ) LVDs (2D): 2.5 cm (2.1 cm-4 MV A Vmax: 1.05 m/s ( - ) cm) MV E/A: 0.50 ( - ) LVPWd (2D): 1.2 cm ( - ) LVEF (BP): 64 % (>=55 %) RVDd(2D): 2.5 cm (1.9 cm-3.8 cmmm) Continued Measurements: Chambers Valvular Assessment AV/MV Name Value Name Value Patient: CELIO FRY Study Date: 07/22/2018 Page 1 of 2 03:41 PM LADs Lon.4 cm MV DecTime: 215 m/s LA Area: 14.5 cm2 MV E' Septal: 0.06 m/s MV E/E' Septal: 8.20 MV E/E' Lateral: 8.70 Additional Vessels Name Value Ao Ascendin.3 cm Findings: Left Ventricle: Normal size left ventricle. Moderate concentric LV hypertrophy. Normal global systolic LV function. EF is 64 %. No regional wall motion abnormality. Normal diastolic LV function. Sigmoid septum with no significant LVOT gradient (12mmHg). Right Ventricle: Normal size right ventricle. Normal RV function. Left Atrium: The left atrium is normal in size. An agitated saline study was performed and was negative for intracardiac shunting. Right Atrium: The right atrium is normal in size. Mitral Valve: The mitral valve is normal in appearance and function. There is mild thickening of the mitral valve leaflets. Mild mitral annular calcification. Mild mitral valve regurgitation is present. No mitral stenosis is present. Aortic Valve: Aortic valve is not well visualized. Mild aortic valve regurgitation is present. No aortic valve stenosis is present. Tricuspid Valve: The tricuspid valve is normal in appearance and function. Trivial to mild tricuspid valve regurgitation. Pulmonary artery pressure is not obtained due to inadequate TR jet. Pulmonic Valve: Pulmonary valve not well visualized. Trivial to mild pulmonic valve regurgitation. Aorta: Normal size aortic root measuring 3.3 cm. Normal size ascending aorta measuring 3.3 cm. IVC: Normal size and course of the IVC. Pericardium: No pericardial effusion. (No Signature Object) Patient: CELIO FRY Study Date: 07/22/2018 Page 2 of 2 03:41 PM [id number]
--- NOTE | 2018-07-22 17:13 | CPEKG ---
Test Reason : OPEN Blood Pressure : / mmHG Vent. Rate : 059 BPM Atrial Rate : 059 BPM P-R Int : 168 ms QRS Dur : 098 ms QT Int : 470 ms P-R-T Axes : 064 -49 041 degrees QTc Int : 466 ms Sinus rhythm Left anterior fascicular block Confirmed by Tristan Lay ([id number]) on 07/22/2018 5:13:10 PM Referred By: Confirmed By:Tristan Lay
[2018-07-22] MEDS ORDERED: GADOBUTROL 10 ML VIAL IVP ONE (18:03)
--- NOTE | 2018-07-22 20:56 | HOSPPROG ---
Hospitalist Progress Note Assessment/Plan: Case discussed with Leslie Huang CELL ASSEMBLY PINNER and I agree with her plan as outlined in her note with the following exceptions: 83yo mainly Austrian-speaking F with history of HTN here with onset of aphasia this morning. It is unclear if she woke up with symptoms or developed later. CT head showed abnormality in left frontal lobe and MRI confirmed ischemic stroke. She was not given TPA as out of time window. Her BP on arrival was 223/112 and she received IV labetalol in the ED. No history of atrial dysrhythmia. Maur[facility] teleneurology was consulted as was Dr Serra. Assessment/Plan: 1. Acute ischemic CVA: With expressive aphasia, otherwise neuro exam intact. 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 Hypertensive emergency: Allowing permissive hypertension with ischemic infarct. - Goal BP<220/120 - Resume home metoprolol in AM 3. 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 4. RUL nodule: Follow as outpatient. VTE ppx: SCDs, LMWH tomorrow Code: full Dispo: Admit to ICU as inpatient Objective: Vital Signs Temp Pulse Resp BP Pulse Ox 36.3 C 55 L 16 161/94 H 99 07/22/18 20:00 07/22/18 20:00 07/22/18 20:00 07/22/18 20:00 07/22/18 20:00 07/21/18 07/22/18 07/23/18 05:59 05:59 05:59 Intake Total 100 Output Total 250 Balance -150 PT 12.9 SEC (12.0-15.0) 07/22/18 13:30 INR 0.95 (0.83-1.16) 07/22/18 13:30 ICD10 Worksheet Patient Problems: Problems Problem Status Onset CVA (cerebral vascular accident) Acute
[2018-07-23] MEDS ORDERED: ROSUVASTATIN CALCIUM 10 MG TAB PO SCH (09:00)
[2018-07-23] MEDS ORDERED: METOPROLOL SUCCINATE XR 50 MG TAB PO SCH (09:00)
[2018-07-23] MEDS: ASPIRIN 81 MG CHEWABLE TAB PO SCH (09:29)
[2018-07-23] MEDS: SERTRALINE HCL 50 MG TAB PO SCH (09:29)
--- NOTE | 2018-07-23 10:37 | NEUROPROG ---
Assessment: [id number] - Neurology Consult: - CC: Stroke causing aphasia - HPI: Pt noted to have speech problems beginning in the morning of 07/22/18. Pt brought to [facility] ER where head CT showed probable left frontoparietal stroke. CTA head/neck showed no large vessel occlusion. Pt outside of time period for TPA. TTE showed no cardiac explanation for stroke. Pt admitted for stroke evaluation. I initially saw the patient on 07/23/18. Neurologic exam showed expressive aphasia. - PMHx: HTN, anxiety, aortic valve disease, HLD, knee surgery - SHx: no tobacco FHx: son alive - ROS: Pt denied acute fever, total vision loss, active severe chest pain, respiratory failure, total body severe rash, total bowel/bladder incontinence, psychosis, active seizures, or active bleeding - O: VS reviewed General: Alert Eyes: Fundoscopic exam not able to visualize optic disks CV: Heart RRR, no murmur, no carotid bruit Lungs: Clear to auscultation bilaterally, no rhonchi or rales Neuro: - Mental: . Oriented x person/place but not date . concentration appears normal . speech fluency/comprehension impaired, pt with expressive aphasia . memory appears normal . fund of knowledge appear intact - Cranial Nerves: . II: PERRL, VFFTC . III/IV/: EOMI, no nystagmus, normal smooth pursuits, no Ptosis . V: facial sensation intact to LT . VII: face symmetric to eye closure and smile . VIII: hearing intact to conversation . IX/X: uvula raises symmetrically . XI: SCM 5/5 B/L strength . XII: tongue protrudes midline w/nl strength - Motor: . Tone: normal tone in all 4 extremity . 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 No large vessel occlusion. 07/22/18- TTE: EF 64%, no thrombus reported 07/22/18- Brain MRI wo: Small focus of ischemia involving the high left posterior frontal lobe, anterior to the motor strip in the left middle cerebral artery territory, corresponds to altered attenuation on CT performed earlier this afternoon. 2. No acute intracranial hemorrhage or hemorrhagic transformation. 3. Atrophy and moderate diffuse white matter disease. - Assessment: 1. Left frontoparietal stroke on 07/22/18: Brain MRI showed L frontoparietal stroke, CTA head/neck and TTE showed no clear cause of stroke. LDL 82, H1AC 6.1. Recommended beginning aspirin, increasing statin, and having health education specialist place prolonged playground monitor. - Plan: - Begin aspirin 81 mg qd for stroke prevention - recommend cardiology place LINQ prior to discharge looking for paroxysmal afib - Blood pressure < 220/120 x 48 hours then < 140/90 - LDL goal < 70 (82), recommend increasing rosuvastatin 5 mg qd to 10 mg qd - H1AC goal < 7.0 (6.1) - PT/OT/Speech therapy to determine any rehab needs - F/U in neurology clinic 1-6 weeks after hospital discharge - No further inpatient neurology w/u needed, neurology will sign off Objective: Vital Signs Temp Pulse Resp BP Pulse Ox 36.6 C 57 L 19 149/95 H 93 07/23/18 04:00 07/23/18 10:00 07/23/18 10:00 07/23/18 10:00 07/23/18 10:00 Laboratory Results 07/23/18 05:35 07/23/18 04:00 07/22/18 07/23/18 07/24/18 05:59 05:59 05:59 Intake Total 340 Output Total 250 Balance 90 PT 12.9 SEC (12.0-15.0) 07/22/18 13:30 INR 0.95 (0.83-1.16) 07/22/18 13:30 Allergies/Adverse Reactions: No Known Allergies Allergy (Verified 09/27/16 14:47)
--- NOTE | 2018-07-23 15:29 | HOSPPROG ---
Hospitalist Progress Note Assessment/Plan: 83 yo F with hx of HTN, HLD presenting with expressive aphasia found to be due to acute cva # acute cva: imaging c/w left posterior frontal lobe ischemia that appears to be acute and corresponds to patients presenting sxs. Appreciated neuro input, plans for asa, lipid management (LDL goal < 70, currently 82, increased rosuvastatin to 10mg/day) and cardiology consultation for consideration of LINQ placement prior to dc to eval for possible a fib. Speech to continue working with patient on her aphasia # htn: has been on metoprolol at home however HR has been in the 50s so will dc at this time, consider addition of other BP med if BP increases but given recent acute cva some permissive htn acceptable currently # HLD: as above, increased statin dose given LDL slightly above goal # anxiety: continue sertraline # RUL nodule: per radiology this appears nearly definitively to be benign but consider repeat cxr in 6 months # IP status # Patient new to my care. Old records reviewed and summarized as above. Care plan reviewed with DR. Alfred and multidisciplinary team on rounds. Subjective: no significant overnight events, patient notes that her speech is getting a bit easier to get out but still intermittently having issues with finding the right words Objective: Vital Signs Temp Pulse Resp BP Pulse Ox 36.6 C 65 22 H 148/100 H 94 07/23/18 04:00 07/23/18 12:00 07/23/18 12:00 07/23/18 12:00 07/23/18 12:00 Laboratory Results 07/23/18 05:35 07/23/18 04:00 07/22/18 07/23/18 07/24/18 05:59 05:59 05:59 Intake Total 340 Output Total 250 Balance 90 PT 12.9 SEC (12.0-15.0) 07/22/18 13:30 INR 0.95 (0.83-1.16) 07/22/18 13:30 awake alert anicteric op clear rrr no mrg cta b soft nt nd no cce warm dry well perfused oriented expressive aphasia but speaking appropriately much of the time - Time Spent With Patient Time Spent with Patient: greater than 35 minutes Time Spent with Patient: Greater than 35 minutes spent on this patients care, greater than 50% of time spent counseling, educating, and coordinating care regarding the above mentioned plan. ICD10 Worksheet Patient Problems: Problems Problem Status Onset CVA (cerebral vascular accident) Acute
[2018-07-23] MEDS ORDERED: PNEUMOC 13-VAL CONJ-DIP CRM/PF 0.5 ML SYR (PREVNAR 13) IM ONE (17:17)
--- NOTE | 2018-07-23 17:20 | ASMTCMCOM ---
CM Note CM Note Notes: Reviewed chart. Pt admitted for an acute stroke with Wernicke's aphasia. History includes HTN, anxiety, aortic valve disease, hyperlipidemia and knee surgery. Pt is primarily Finnish speaking. She is and lives in [place] with her . Pt's wgxtb-[id number] Leslie was at the bedside today. Per Leslie, the pt "has had some progressive memory loss over the past several years." PT/OT are recommending discharge home with 24 hr supervision. CM will continue to follow for any other potential needs. Discharge Plan: Likely home with 24 hr supervision Date Signed: 07/23/2018 05:20 PM Electronically Signed By:Suzanna Alvarado RN
--- NOTE | 2018-07-23 19:37 | PDMN ---
Medical Necessity Medical necessity: Pt meets IP criteria as of 07/22/2018 per and MCG M-83 ( Stroke, ischemic); est los > 2 mn for ongoing tx and management of acute CVA with expressive aphasia; requiring further work up, neurology consultation serial labs, neuro monitoring, med management and therapies.
[2018-07-24 05:35] LABS: PLATELET COUNT 193 10^3/uL (150-400)
[2018-07-24] MEDS: SERTRALINE HCL 50 MG TAB PO SCH (09:38)
[2018-07-24] MEDS: ROSUVASTATIN CALCIUM 10 MG TAB PO SCH (09:38)
[2018-07-24] MEDS: ASPIRIN 81 MG CHEWABLE TAB PO SCH (09:38)
[2018-07-24] MEDS ORDERED: NS 1,000 ML IV ONE (11:43)
--- NOTE | 2018-07-24 11:43 | PDCONSULT ---
Adolescent Counselor Note: Consult for cardiology was placed, but primary intent was to establish cardiology placing LINQ monitor given new CVA without cause. I spoke with patient and family today about the device options (holter, CardioNet, and LINQ), and cardiology is in agreement with neurology that the ferry terminal agent, subcutaneous LINQ monitor is likely the best option for assessment of pAF as etiology for the CVA noted. No anticoagulation has started given the size/location of the CVA (neurology is recommending a 2 week reprieve with this therapy). Primary neurology deficit is aphasia (no motor weakness/numbness noted). Interpretation is good, but primary language is Guyanese, and so was able to discuss with the patient today what cardiology plans on performing. LINQ monitors are not placed over the weekend, so plan for placement in the morning. Patient should be able to go home after this device has been placed. Would have outpatient follow up with cardiology later this week. Outpatient neurology follow up to be scheduled as well. Would begin anticoagulation when "safe" from neurology standpoint.
--- NOTE | 2018-07-24 14:07 | ASMTCMCOM ---
CM Note CM Note Notes: CM met with pt and son, Oni ([phone]) who reports pt's is linked with [facility] for HHC. Pt is getting LINQ placed tomorrow. Pt and family would like to have homecare through [facility]. PT/OT rec home with 24hr supervision, Speech rec SNF. Family wants pt to be home. CM submit referral for [facility]. Provided with contact numbers for Oni and Leslie (dtr in law [phone]). CM provided education about pt needing 24 hr supervision at discharge. CM also provided education about [employer] and pt was appreciative of information and will look into getting it for his parents. Plan: DC home with [facility] Speech after LINQ placed. Date Signed: 07/24/2018 02:06 PM Electronically Signed By:PAULINA Marte
--- NOTE | 2018-07-24 15:46 | HOSPPROG ---
Hospitalist Progress Note Assessment/Plan: 83 yo F with hx of HTN, HLD presenting with expressive aphasia found to be due to acute cva # acute cva: imaging c/w left posterior frontal lobe ischemia that appears to be acute and corresponds to patients presenting sxs. Appreciated neuro input, plans for asa, lipid management (LDL goal < 70, currently 82, increased rosuvastatin to 10mg/day) cardiology to place LINQ in the am. Speech to continue working with patient on her aphasia # htn: has been on metoprolol at home however HR has been in the 50s so will dc at this time, consider addition of other BP med if BP increases but given recent acute cva some permissive htn acceptable currently # HLD: as above, increased statin dose given LDL slightly above goal # anxiety: continue sertraline # RUL nodule: per radiology this appears nearly definitively to be benign but consider repeat cxr in 6 months # IP status, care plan reviewed with cardiology and patients family present at bedside Subjective: no significant overnight events, patient continues to work with speech and ot and is making progress with her aphasia Objective: Vital Signs Temp Pulse Resp BP Pulse Ox 36.8 C 84 19 138/99 H 92 07/24/18 12:00 07/24/18 12:00 07/24/18 12:00 07/24/18 12:00 07/24/18 12:00 Laboratory Results 07/24/18 04:20 07/24/18 04:20 07/23/18 07/24/18 07/25/18 05:59 05:59 05:59 Intake Total 340 120 Output Total 250 Balance 90 120 PT 12.9 SEC (12.0-15.0) 07/22/18 13:30 INR 0.95 (0.83-1.16) 07/22/18 13:30 awake alert anicteric op clear rrr no mrg cta b soft nt nd no cce warm dry well perfused oriented expressive aphasia but speaking appropriately much of the time ICD10 Worksheet Patient Problems: Problems Problem Status Onset CVA (cerebral vascular accident) Acute
[2018-07-25 05:02] LABS: PLATELET COUNT 175 10^3/uL (150-400)
[2018-07-25] MEDS ORDERED: NS 1,000 ML IV ONE (06:00)
[2018-07-25] MEDS ORDERED: LIDOCAINE 1% 300 MG/30 ML SDV IH ONE (08:45)
[2018-07-25] MEDS: ASPIRIN 81 MG CHEWABLE TAB PO SCH (10:45)
[2018-07-25] MEDS: SERTRALINE HCL 50 MG TAB PO SCH (10:48)
[2018-07-25] MEDS: ROSUVASTATIN CALCIUM 10 MG TAB PO SCH (10:48)
[2018-07-25 12:32] VITALS: BP 145/88
--- NOTE | 2018-07-25 13:26 | PDDCSUM ---
Discharge Summary Discharge Summary: Dates of service 07/22/18-07/25/18 Consultations: neurology, cardiology Procedures performed: brain MRI, head/neck CTA, echo, LINQ placement Hospital course by problem: 83 yo F with hx of HTN, HLD presenting with expressive aphasia found to be due to acute cva # acute cva: imaging c/w left posterior frontal lobe ischemia that appears to be acute and corresponds to patients presenting sxs. Continue asa, lipid management (LDL goal < 70, currently 82, increased rosuvastatin to 10mg/day) LINQ placed today and patient to f/u with cardiology for that. Speech to continue working with patient on her aphasia # htn: has been on metoprolol at home however HR has been in the 50s so will dc at this time, consider addition of other BP med if BP increases but given recent acute cva some permissive htn acceptable currently # HLD: as above, increased statin dose given LDL slightly above goal # anxiety: continue sertraline # RUL nodule: per radiology this appears nearly definitively to be benign but consider repeat cxr in 6 months # DC home with home health Follow up: --PCP --Neurology --Cardiology--f/u results of LINQ > 35 min spent in dc more than half in coordination of care and counseling patient and family regarding f/u care plans
--- NOTE | 2018-07-25 13:27 | PDIAF ---
- Diagnosis Code Status: Full Code - Medication Management Discharge Medications: electronically signed and located in the Home Medication List. - Orders Services needed: Home Care, Registered Nurse, Certified Hardware Test Engineer, Physical Therapy, Occupational Therapy, Speech Language Pathologist Home Care Face to Face: I certify that this patient was under my care and that I had the required [id number] encounter meeting the encounter requirements on the discharge day. My findings support the fact that the patient is homebound as defined in Home Care Face to Face Continued: CMS Chapter 7 Medicare Benefits Manual 30.1.1 , The condition of the patient is such that there exists a normal inability to leave home and consequently, leaving home would require a considerable and taxing effort. Diet Recommendation: no restrictions on diet - Follow Up Care Current Providers and Referrals: Raudel Serra DO [Medical Doctor] - follow up in 2 weeks Patient,NotPresent [Unknown] - As per Instructions Rony Bradshaw MD [Medical Doctor] - follow up in 2 weeks
--- NOTE | 2018-07-25 13:33 | ASMTLACE ---
LACE Length of stay for Answers: 3 days current admission Acuity / Level of Answers: Yes Care: Did the patient have an inpatient admission? Comorbidities - select Answers: Cerebrovascular disease all that apply (CVA, TIA, aneurysms, vasc ular dementia) # of Emergency department Answers: 1-2 visits in the last 6 months Score: 8 Date Signed: 07/25/2018 01:32 PM Electronically Signed By:Eileen Lawrence RN
--- NOTE | 2018-07-25 13:34 | ASMTDCNOTE ---
Case Management Discharge Discharge Order Complete? Answers: Yes Patient to Obtain Answers: Independently Medications Transportation Arranged Answers: Family/Friends Agency/Facility Transfer Answers: Yes Report Printed & Faxed to Receiving Agency Family Notified Answers: Yes Discharge Comments Notes: Patient will discharge home w support of family. Gave son Oni list of private duty caregiver agencies. Reiterated importance of 08/02 care. Sent orders for HH to [facility]. Oni to transport home. Date Signed: 07/25/2018 01:34 PM Electronically Signed By:Eileen Lawrence RN
--- NOTE | 2018-07-25 15:34 | SUROPNOTE ---
JOSÉ Operative Report - Surgery PROCEDURE: (1) LINQ implant INDICATION: (1) Cryptogenic CVA Details: After consent was obtained, the patient was prepped and draped in the usual sterile fashion. Lidocaine (1%) was used to the 2nd/3rd intercostal space for local anesthetic. A small incision was made in the skin with a #12 blade, and the provided blade was then used for proper breath/width. The delivery rail system was then placed subcutaneously at an angle over the region of best cardiac impulse. The device was then injected without difficulty, and three rhina were used to close the small pocket. No blood loss was appreciated. Patient tolerated the procedure without difficulty. [employer] SN: [id number] Outpatient follow up has been scheduled.
--- NOTE | 2018-07-25 16:35 | ASDISCHSUM ---
Discharge Information Plan Status:Home with Home Health Medically Cleared to Leave: Discharge Date:07/25/2018 02:53 PM CM D/C Disposition: ADT D/C Disposition:Home Health Service Projected Discharge Date:07/25/2018 11:00 AM Transportation at D/C: Discharge Delay Reason: Follow-Up Date:07/25/2018 11:00 AM Discharge Slot: Final Diagnosis: Placement Information Referral Type:*Home Health Care Services Referral ID:[id number] Provider Name:[facility] Address 1:[address] Address 2: City:[place] Selection Factors: State:[place] Patient Contact Information Contact Name:EZRA Relationship:Son Address: Home Phone: City: [facility] Phone: [facility] Code: Email: Financial Information Financial Class:Medicare Primary Plan Desc:MEDICARE INPATIENT Primary Plan Number:[id number] Secondary Plan Desc:MARLENI Secondary Plan Number:[id number] Assessment Information LACE LACE Length of stay for Answers: 3 days current admission Acuity / Level of Answers: Yes Care: Did the patient have an inpatient admission? Comorbidities - select Answers: Cerebrovascular disease all that apply (CVA, TIA, aneurysms, vasc ular dementia) # of Emergency department Answers: 1-2 visits in the last 6 months Score: 8 Date Signed: 07/25/2018 01:32 PM Electronically Signed By:Eileen Lawrence RN [facility] MARK Progress Note CM Note CM Note Notes: Reviewed chart. Pt admitted for an acute stroke with Wernicke's aphasia. History includes HTN, anxiety, aortic valve disease, hyperlipidemia and knee surgery. Pt is primarily Uzbek speaking. She is and lives in [place] with her . Pt's itiub-kq-izi Leslie was at the bedside today. Per Leslie, the pt "has had some progressive memory loss over the past several years." PT/OT are recommending discharge home with 24 hr supervision. CM will continue to follow for any other potential needs. Discharge Plan: Likely home with 24 hr supervision Date Signed: 07/23/2018 05:20 PM Electronically Signed By:Suzanna Alvarado RN [facility] CM Progress Note CM Note CM Note Notes: CM met with pt and son, Oni ([phone]) who reports pt's is linked with [facility] for HHC. Pt is getting LINQ placed tomorrow. Pt and family would like to have homecare through [facility]. PT/OT rec home with 24hr supervision, Speech rec SNF. Family wants pt to be home. CM submit referral for [facility]. Provided with contact numbers for Oni and Leslie (dtr in law [phone]). CM provided education about pt needing 24 hr supervision at discharge. CM also provided education about [employer] and pt was appreciative of information and will look into getting it for his parents. Plan: DC home with [facility] Speech after LINQ placed. Date Signed: 07/24/2018 02:06 PM Electronically Signed By:PAULINA Marte Case Management Discharge Plan Note Case Management Discharge Discharge Order Complete? Answers: Yes Patient to Obtain Answers: Independently Medications Transportation Arranged Answers: Family/Friends Agency/Facility Transfer Answers: Yes Report Printed & Faxed to Receiving Agency Family Notified Answers: Yes Discharge Comments Notes: Patient will discharge home w support of family. Gave james Bunn list of private duty caregiver agencies. Reiterated importance of 08/02 care. Sent orders for HH to [facility]. Oni to transport home. Date Signed: 07/25/2018 01:34 PM Electronically Signed By:Eileen Lawrence RN Intervention Information
== END 2018-07-25 14:53 | disposition home health service (06) | DRG 42 ==
LOC: EDUNIT# → F2N 15:22 → F3N 07-23 15:58
PROVIDERS: ADMIT Internal Medicine; ATTEND Internal Medicine
PROC: 0JH602Z Insertion of Monitoring Device into Chest Subcutaneous Tissue and Fascia, Open Approach (ICD-10-PCS; principal; 2018-07-25)
DX: I63.9 Cerebral infarction, unspecified (principal); R47.01 Aphasia; I10 Essential (primary) hypertension; E78.5 Hyperlipidemia, unspecified; F41.9 Anxiety disorder, unspecified; R91.1 Solitary pulmonary nodule; I35.8 Other nonrheumatic aortic valve disorders; Z23 Encounter for immunization
CPT/HCPCS: 82435-PO; 82565-PO; 82947-PO; 84132-PO; 84295-PO; 84484-ER; 84520-PO; 85014-ER; 92507-GN; 92523-GN; 96374; 97161-GP; 97166-GO; 97530-GO; 97535-GO; A9585; C1764; G0008; G0009